=== PATIENT | female | born 1965 | race Hispanic/Latino ===

== ENCOUNTER 2017-05-26 08:40 | Emergency (ER) | payer OTHER ==
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
== END 2017-05-26 10:30 | disposition home or self-care (01) ==
LOC: ERS 08:40
DX: S16.1XXA Strain of muscle, fascia and tendon at neck level, initial encounter (principal); S60.812A Abrasion of left wrist, initial encounter; R51 Headache; F41.9 Anxiety disorder, unspecified; I10 Essential (primary) hypertension; Z79.899 Other long term (current) drug therapy; V89.2XXA Person injured in unspecified motor-vehicle accident, traffic, initial encounter
CPT/HCPCS: 70450; 72125